=== PATIENT | female | born 1995 | race Hispanic/Latino ===

== ENCOUNTER 2018-10-26 12:29 | Emergency (ER) | payer OTHER ==
[2018-10-26] MEDS ORDERED: CEPHALEXIN 500 MG CAPSULE ONE (12:45)
== END 2018-10-26 13:05 | disposition home or self-care (01) ==
LOC: EEVIPCON 12:29 → EDH 12:29
DX: L01.03 Bullous impetigo (principal); Z88.0 Allergy status to penicillin